=== PATIENT | female | born 1955 | race Caucasian/White ===

== ENCOUNTER 2023-07-11 14:29 | Inpatient (IN) | payer MEDICARE ==
[~2023-07-11] VITALS: Ht 170.2 cm; Wt 63.4 kg
[2023-07-11] MEDS ORDERED: SOMA15PE2 SQ ×2 (14:49→20:01)
[2023-07-11] MEDS ORDERED: HYDR-3887 PO (14:49)
[2023-07-11] MEDS ORDERED: LEVO100 PO (14:49)
[2023-07-11] MEDS ORDERED: SERT-438 PO (14:49)
[2023-07-11] MEDS ORDERED: DIAZ5TAB4 PO (14:49)
[2023-07-11] MEDS ORDERED: HALOPERIDOL 5 MG TABLET PO PRN (15:00)
[2023-07-11] MEDS ORDERED: ZOLPIDEM TARTRATE 10 MG TABLET PO PRN (15:00)
[2023-07-11 15:02] LABS: BASOPHILS % (AUTO) 0.4 % (0.0-2.0); EOSINOPHILS % (AUTO) 1.9 % (1.0-6.0); HEMATOCRIT 34.9 % (36-46); HEMOGLOBIN 12.8 g/dL (12.0-16.0); LYMPHOCYTES # (AUTO) 1.2 K/uL (1.0-4.8); LYMPHOCYTES % (AUTO) 19.7 % (22.0-44.0); MEAN CORPUSCULAR HEMOGLOBIN 30.8 pg (26.0-34.0); MEAN CORPUSCULAR HGB CONC 36.7 G/dL (31.0-37.0); MEAN CORPUSCULAR VOLUME 84 fL (80-100); MONOCYTES # (AUTO) 0.6 K/uL (0.1-1.0); MONOCYTES % (AUTO) 10.9 % (2.0-9.0); NEUTROPHILS % (AUTO) 67.1 % (40.0-70.0); PLATELET COUNT (AUTO) 214 K/uL (150-450); RED BLOOD CELL COUNT(AUTO) 4.16 MIL/uL (4.00-5.20); RED CELL DISTRIBUTION WIDTH 12.9 % (11.5-14.5); WHITE BLOOD COUNT (AUTO) 5.9 K/uL (4.5-11.0)
[2023-07-11 15:17] LABS: COVID AG,FIA SOURCE NASAL SWAB
[2023-07-11 15:24] LABS: ALANINE AMINOTRANSFERASE 24 U/L (12-78); ALBUMIN 3.2 g/dL (3.4-5.0); ALKALINE PHOSPHATASE 63 U/L (46-116); ANION GAP 15 mmol/L (8-16); ASPARTATE AMINOTRANSFERASE 24 U/L (15-37); BILIRUBIN,TOTAL 0.7 mg/dL (0.1-1.0); CALCIUM, TOTAL 7.7 mg/dL (8.8-10.5); CARBON DIOXIDE 22 mmol/L (22-29); CHLORIDE 77 mmol/L (98-107); CREATININE 0.49 mg/dL (0.60-1.30); GLOMERULAR FILTR. RATE CALC > 60 mL/min (>60); GLUCOSE,RANDOM 83 mg/dL (70-110); POTASSIUM 3.1 mmol/L (3.5-5.1); TOTAL PROTEIN, SERUM 6.4 g/dL (6.4-8.2); UREA NITROGEN, BLOOD 8 mg/dL (7-18)
[2023-07-11 15:35] LABS: ACETAMINOPHEN < 2 mcg/mL (10-30); SODIUM SERUM 114 mmol/L (136-145)
[2023-07-11 15:40] LABS: ALCOHOL, BLOOD (SERUM) < 3 mg/dL (0-10)
[2023-07-11 15:45] LABS: SARS-COV2 (COVID) ANTIGEN,FIA Negative (Negative)
[2023-07-11 15:47] LABS: SALICYLATE 1.2 mg/dL (2.8-20.0)
[2023-07-11] MEDS: HEPARIN SODIUM,PORCINE 5,000 UNITS/ML VIAL SQ SCH (16:00)
[2023-07-11] MEDS ORDERED: ONDANSETRON HCL 4 MG/2 ML VIAL IVP PRN (16:00)
[2023-07-11] MEDS ORDERED: POTASSIUM CHL 10 MEQ/WATER 50 ML IV PRN (16:00)
[2023-07-11] MEDS: SODIUM CHLORIDE 0.9% 1,000 ML IV ONE (16:12)
[2023-07-11] MEDS ORDERED: DEXTROSE 50%-WATER 25 GM/50 ML SYRINGE IVP PRN (16:15)
[2023-07-11] MEDS: HYDROCORTISONE 10 MG TABLET PO ONE (16:31)
[2023-07-11] MEDS: SODIUM CHLORIDE 1 GM TABLET PO ONE (16:31)
[2023-07-11 17:06] LABS: THYROID STIMULATING HORMONE < 0.01 uIU/mL (0.36-3.74)
[2023-07-11] MEDS: POTASSIUM CHLORIDE 20 MEQ ER TABLET PO PRN (17:19)
[2023-07-11 17:32] LABS: APPEARANCE,URINE CLEAR (CLEAR); BILIRUBIN,URINE NEGATIVE (NEGATIVE); COLOR,URINE LIGHT YELLOW (YELLOW); GLUCOSE, URINE (UA) NEGATIVE (NEGATIVE); KETONES,URINE =>150 mg/dL (NEGATIVE); LEUKOCYTE ESTERASE ,URINE SMALL (NEGATIVE); NITRATE,URINE NEGATIVE (NEGATIVE); OCCULT BLOOD,URINE NEGATIVE (NEGATIVE); PH,URINE 5.5 (5.0-8.0); PROTEIN,URINE TRACE mg/dL (NEGATIVE); SPECIFIC GRAVITIY, URINE 1.014 (1.003-1.030); UROBILINOGEN,URINE <=1.0 mg/dL (<=1.0)
[2023-07-11 17:33] LABS: PH,URINE DRUG SCREEN 5.5 (5.0-8.0)
[2023-07-11 17:38] LABS: ALCOHOL, URINE DRUG SCREEN NEGATIVE (NEGATIVE); AMPHET/METH SCREEN,URINE NEGATIVE (NEGATIVE); BARBITURATE SCREEN, URINE NEGATIVE (NEGATIVE); BENZODIAZEPINES SCREEN,URINE POSITIVE (NEGATIVE); CANNABINOID SCREEN,URINE NEGATIVE (NEGATIVE); COCAINE SCREEN,URINE NEGATIVE (NEGATIVE); METHADONE SCREEN, URINE NEGATIVE (NEGATIVE); OPIATE SCREEN,URINE NEGATIVE (NEGATIVE); PHENCYCLIDINE SCREEN,URINE NEGATIVE (NEGATIVE)
[2023-07-11 18:09] LABS: BACTERIA,URINE Few /HPF (None Seen); RBC,URINE None Seen /HPF (0-2)
[2023-07-11 20:16] LABS: ANION GAP 17 mmol/L (8-16); CALCIUM, TOTAL 7.8 mg/dL (8.8-10.5); CARBON DIOXIDE 19 mmol/L (22-29); CHLORIDE 81 mmol/L (98-107); CREATININE 0.49 mg/dL (0.60-1.30); GLOMERULAR FILTR. RATE CALC > 60 mL/min (>60); GLUCOSE,RANDOM 90 mg/dL (70-110); POTASSIUM 3.3 mmol/L (3.5-5.1); UREA NITROGEN, BLOOD 7 mg/dL (7-18)
[2023-07-11 20:20] LABS: SODIUM SERUM 117 mmol/L (136-145)
[2023-07-11] MEDS: DOCUSATE SODIUM 100 MG CAPSULE PO SCH (20:55)
[2023-07-11] MEDS: CALCIUM OYSTER SHELL 250 MG-VIT D3 125 UNITS[3.125MCG] TABLET PO SCH (21:13)
[2023-07-11] MEDS: SODIUM CHLORIDE 1 GM TABLET PO SCH (21:57)
[2023-07-11] MEDS ORDERED: SODIUM CHLORIDE 1 GM TABLET PO SCH (22:00)
[2023-07-11] MEDS: ACETAMINOPHEN 325 MG TABLET PO PRN (22:56)
[2023-07-11] MEDS ORDERED: HYDROCORTISONE 10 MG TABLET PO SCH (23:00)
[2023-07-11] MEDS: CHLORHEXIDINE GLUCONATE 2% TOWELETTE [2'S/6'S] TP SCH (23:09)
[2023-07-11 23:32] LABS: ANION GAP 14 mmol/L (8-16); CALCIUM, TOTAL 8.6 mg/dL (8.8-10.5); CARBON DIOXIDE 21 mmol/L (22-29); CHLORIDE 94 mmol/L (98-107); CREATININE 0.63 mg/dL (0.60-1.30); GLOMERULAR FILTR. RATE CALC > 60 mL/min (>60); GLUCOSE,RANDOM 109 mg/dL (70-110); SODIUM SERUM 129 mmol/L (136-145); UREA NITROGEN, BLOOD 4 mg/dL (7-18)
[2023-07-12] MEDS: HYDROCORTISONE SOD SUCC 100 MG/2 ML VIAL IVP SCH (00:29)
[2023-07-12] MEDS: DESMOPRESSIN ACETATE 4 MCG/ML VIAL IVP ONE (00:30)
[2023-07-12] MEDS: DEXTROSE 5%-WATER 1,000 ML IV SCH (00:53)
[2023-07-12 05:30] LABS: ANION GAP 14 mmol/L (8-16); CALCIUM, TOTAL 8.5 mg/dL (8.8-10.5); CARBON DIOXIDE 20 mmol/L (22-29); CHLORIDE 94 mmol/L (98-107); GLOMERULAR FILTR. RATE CALC > 60 mL/min (>60); GLUCOSE,RANDOM 133 mg/dL (70-110); POTASSIUM 4.9 mmol/L (3.5-5.1); SODIUM SERUM 128 mmol/L (136-145); UREA NITROGEN, BLOOD 7 mg/dL (7-18)
[2023-07-12] MEDS: FAMOTIDINE 20 MG TABLET PO SCH (08:21)
[2023-07-12 11:00] VITALS: BP 130/75; PULSE 104; RESP 16; TEMP 98; O2SAT 99
[2023-07-12 11:15] LABS: ANION GAP 11 mmol/L (8-16); CALCIUM, TOTAL 8.3 mg/dL (8.8-10.5); CARBON DIOXIDE 21 mmol/L (22-29); CHLORIDE 95 mmol/L (98-107); GLOMERULAR FILTR. RATE CALC > 60 mL/min (>60); GLUCOSE,RANDOM 166 mg/dL (70-110); POTASSIUM 4.2 mmol/L (3.5-5.1); SODIUM SERUM 127 mmol/L (136-145); UREA NITROGEN, BLOOD 8 mg/dL (7-18)
[2023-07-12] MEDS: LORazepam 2 MG TABLET PO PRN (14:09)
[2023-07-12 15:22] LABS: ANION GAP 10 mmol/L (8-16); CALCIUM, TOTAL 8.1 mg/dL (8.8-10.5); CARBON DIOXIDE 20 mmol/L (22-29); CHLORIDE 94 mmol/L (98-107); CREATININE 0.61 mg/dL (0.60-1.30); GLOMERULAR FILTR. RATE CALC > 60 mL/min (>60); GLUCOSE,RANDOM 210 mg/dL (70-110); UREA NITROGEN, BLOOD 7 mg/dL (7-18)
[2023-07-12 15:24] LABS: SODIUM SERUM 124 mmol/L (136-145)
[2023-07-12 19:36] LABS: GLUCOMETER DEV NAME(LOC) 5N.2C; GLUCOSE,POINT OF CARE 109 MG/DL (70-110)
[2023-07-12] MEDS ORDERED: HYDROCORTISONE 10 MG TABLET PO SCH (20:00)
[2023-07-12 20:14] LABS: ANION GAP 11 mmol/L (8-16); CARBON DIOXIDE 21 mmol/L (22-29); CHLORIDE 94 mmol/L (98-107); CREATININE 0.66 mg/dL (0.60-1.30); GLOMERULAR FILTR. RATE CALC > 60 mL/min (>60); GLUCOSE,RANDOM 165 mg/dL (70-110); POTASSIUM 3.3 mmol/L (3.5-5.1); SODIUM SERUM 125 mmol/L (136-145); UREA NITROGEN, BLOOD 7 mg/dL (7-18)
[2023-07-12 20:35] VITALS: BP 119/67; PULSE 89; RESP 17; TEMP 98.2; O2SAT 98
[2023-07-12] MEDS: HYDROCORTISONE 10 MG TABLET PO SCH (20:47)
[2023-07-12 20:55] VITALS: BP 119/67; PULSE 89; RESP 17; TEMP 98.2
[2023-07-12] MEDS: INSULIN LISPRO 100 UNITS/ML SQ PRN (21:10)
[2023-07-12] MEDS: ZOLPIDEM TARTRATE 5 MG TABLET PO PRN (21:58)
[2023-07-13 04:25] VITALS: BP 105/64; PULSE 81; RESP 18; TEMP 97.9
[2023-07-13 07:42] VITALS: BP 115/73; PULSE 74; RESP 18; TEMP 97.9
[2023-07-13 09:13] LABS: HEMOGLOBIN 13.7 g/dL (12.0-16.0); RED CELL DISTRIBUTION WIDTH 13.1 % (11.5-14.5)
[2023-07-13 09:19] LABS: EOSINOPHILS % (AUTO) 0.8 % (1.0-6.0); HEMATOCRIT 38.8 % (36-46); LYMPHOCYTES # (AUTO) 1.6 K/uL (1.0-4.8); LYMPHOCYTES % (AUTO) 25.3 % (22.0-44.0); MEAN CORPUSCULAR HEMOGLOBIN 30.6 pg (26.0-34.0); MEAN CORPUSCULAR HGB CONC 35.4 G/dL (31.0-37.0); MEAN CORPUSCULAR VOLUME 87 fL (80-100); MONOCYTES # (AUTO) 0.4 K/uL (0.1-1.0); MONOCYTES % (AUTO) 5.7 % (2.0-9.0); NEUTROPHILS # (AUTO) 4.2 K/uL (1.8-7.7); NEUTROPHILS % (AUTO) 67.2 % (40.0-70.0); RED BLOOD CELL COUNT(AUTO) 4.47 MIL/uL (4.00-5.20); WHITE BLOOD COUNT (AUTO) 6.2 K/uL (4.5-11.0)
[2023-07-13 10:24] LABS: PLATELET COUNT (AUTO) 102 K/uL (150-450)
[2023-07-13 11:31] VITALS: BP 119/68; PULSE 80; RESP 18; TEMP 98
[2023-07-13 11:55] LABS: GLUCOMETER DEV NAME(LOC) 5N.2C; GLUCOSE,POINT OF CARE 148 MG/DL (70-110)
[2023-07-13 11:56] LABS: GLUCOMETER DEV NAME(LOC) 5N.2C; GLUCOSE,POINT OF CARE 95 MG/DL (70-110)
[2023-07-13 14:46] LABS: GLUCOMETER DEV NAME(LOC) 5S.2C; GLUCOSE,POINT OF CARE 192 MG/DL (70-110)
[2023-07-13 14:46] LABS: GLUCOMETER DEV NAME(LOC) 5S.2C; GLUCOSE,POINT OF CARE 112 MG/DL (70-110)
[2023-07-13 17:35] VITALS: BP 127/82; PULSE 86; RESP 18; TEMP 98.4
[2023-07-13 20:25] VITALS: BP 102/55; PULSE 77; RESP 18; TEMP 98.4
[2023-07-13 21:10] LABS: GLUCOMETER DEV NAME(LOC) 5N.2C; GLUCOSE,POINT OF CARE 112 MG/DL (70-110)
[2023-07-13 21:16] LABS: GLUCOMETER DEV NAME(LOC) 5N.2C; GLUCOSE,POINT OF CARE 139 MG/DL (70-110)
[2023-07-14 05:02] VITALS: BP 102/61; PULSE 75; RESP 18; TEMP 97.9
[2023-07-14 06:42] LABS: BASOPHILS % (AUTO) 0.6 % (0.0-2.0); EOSINOPHILS % (AUTO) 1.9 % (1.0-6.0); HEMOGLOBIN 12.6 g/dL (12.0-16.0); LYMPHOCYTES # (AUTO) 1.7 K/uL (1.0-4.8); LYMPHOCYTES % (AUTO) 32.1 % (22.0-44.0); MEAN CORPUSCULAR HEMOGLOBIN 31.1 pg (26.0-34.0); MEAN CORPUSCULAR HGB CONC 36.1 G/dL (31.0-37.0); MEAN CORPUSCULAR VOLUME 86 fL (80-100); MONOCYTES # (AUTO) 0.5 K/uL (0.1-1.0); MONOCYTES % (AUTO) 9.7 % (2.0-9.0); NEUTROPHILS # (AUTO) 2.9 K/uL (1.8-7.7); NEUTROPHILS % (AUTO) 55.7 % (40.0-70.0); PLATELET COUNT (AUTO) 243 K/uL (150-450); RED BLOOD CELL COUNT(AUTO) 4.07 MIL/uL (4.00-5.20); RED CELL DISTRIBUTION WIDTH 13.3 % (11.5-14.5); WHITE BLOOD COUNT (AUTO) 5.2 K/uL (4.5-11.0)
[2023-07-14 06:52] LABS: ALANINE AMINOTRANSFERASE 29 U/L (12-78); ALBUMIN 2.9 g/dL (3.4-5.0); ALKALINE PHOSPHATASE 60 U/L (46-116); ANION GAP 8 mmol/L (8-16); ASPARTATE AMINOTRANSFERASE 24 U/L (15-37); BILIRUBIN,TOTAL 0.4 mg/dL (0.1-1.0); CALCIUM, TOTAL 8.9 mg/dL (8.8-10.5); CARBON DIOXIDE 25 mmol/L (22-29); CHLORIDE 100 mmol/L (98-107); CREATININE 0.65 mg/dL (0.60-1.30); GLOMERULAR FILTR. RATE CALC > 60 mL/min (>60); GLUCOSE,RANDOM 95 mg/dL (70-110); PHOSPHORUS 2.7 mg/dL (2.5-4.9); SODIUM SERUM 133 mmol/L (136-145); TOTAL PROTEIN, SERUM 6.1 g/dL (6.4-8.2); UREA NITROGEN, BLOOD 6 mg/dL (7-18)
[2023-07-14 07:22] VITALS: BP 105/65; PULSE 69; RESP 18; TEMP 97.8
[2023-07-14] MEDS: BuPROPion HCL 75 MG TABLET PO SCH (08:12)
[2023-07-14 10:00] LABS: GLUCOMETER DEV NAME(LOC) 5S.2C; GLUCOSE,POINT OF CARE 94 MG/DL (70-110)
[2023-07-14 11:19] VITALS: BP 107/80; PULSE 87; RESP 18; TEMP 98
[2023-07-14 12:50] LABS: GLUCOMETER DEV NAME(LOC) 5N.2C; GLUCOSE,POINT OF CARE 240 MG/DL (70-110)
[2023-07-14 12:50] LABS: GLUCOMETER DEV NAME(LOC) 5N.2C; GLUCOSE,POINT OF CARE 102 MG/DL (70-110)
[2023-07-14 15:30] VITALS: BP 105/66; PULSE 78; RESP 18; TEMP 97.6
[2023-07-14 19:05] VITALS: BP 100/68; PULSE 78; RESP 19; TEMP 97.7
[2023-07-14 20:25] LABS: GLUCOMETER DEV NAME(LOC) 6N.2B; GLUCOSE,POINT OF CARE 94 MG/DL (70-110)
[2023-07-15 00:26] LABS: GLUCOMETER DEV NAME(LOC) 6N.2B; GLUCOSE,POINT OF CARE 111 MG/DL (70-110)
[2023-07-15 04:09] VITALS: BP 101/60; PULSE 73; RESP 18; TEMP 98
[2023-07-15] MEDS: LEVOTHYROXINE SODIUM 50 MCG TABLET PO SCH (05:37)
[2023-07-15 06:55] LABS: GLUCOMETER DEV NAME(LOC) 6N.2B; GLUCOSE,POINT OF CARE 95 MG/DL (70-110)
[2023-07-15 07:22] VITALS: BP 104/65; PULSE 79; RESP 19; TEMP 98.2
[2023-07-15 16:00] VITALS: BP 121/82; PULSE 87; RESP 19; TEMP 98.3
[2023-07-15 20:15] LABS: GLUCOMETER DEV NAME(LOC) 6N.2B; GLUCOSE,POINT OF CARE 95 MG/DL (70-110)
[2023-07-15] MEDS ORDERED: FAMOTIDINE 20 MG TABLET PO SCH (21:00)
[2023-07-16 02:41] LABS: GLUCOMETER DEV NAME(LOC) 4E.2; GLUCOSE,POINT OF CARE 105 MG/DL (70-110)
[2023-07-16] MEDS ORDERED: LEVO125T95 PO (12:27)
[2023-07-16] MEDS ORDERED: CALC-1275 PO (12:28)
== END 2023-07-15 17:45 | DRG 918 ==
LOC: EMS 14:31 → ICUN 17:04 → 5N 07-12 07:25 → 6N 07-14 19:00
PROVIDERS: ADMIT Internal Medicine; ATTEND Internal Medicine
DX: T42.4X2A Poisoning by benzodiazepines, intentional self-harm, initial encounter (principal); E23.0 Hypopituitarism; E87.1 Hypo-osmolality and hyponatremia; E24.9 Cushing's syndrome, unspecified; E03.8 Other specified hypothyroidism; Z20.822 Contact with and (suspected) exposure to COVID-19; F32.A Depression, unspecified; E87.6 Hypokalemia; Y92.89 Other specified places as the place of occurrence of the external cause; E03.9 Hypothyroidism, unspecified; Z88.1 Allergy status to other antibiotic agents; Z90.710 Acquired absence of both cervix and uterus
CPT/HCPCS: 80048; 80053; 80307; 81001; 82271; 82533; 82962; 83735; 84100; 84132; 84295; 84439; 84443; 85025; 87086; 87186; 99285; G0480; G0481; J1644; J1720; J2597; J7030; J7060